=== PATIENT | male | born 1950 | race Caucasian/White ===

== ENCOUNTER 2017-04-28 17:55 | Emergency (ER) | payer MEDICARE ==
[~2017-04-28] VITALS: Ht 185.4 cm; Wt 104.3 kg
--- NOTE | ~2017-04-28 | EKG ---
PATIENT: ANANDA MOORE UNIT #: [id number] Ventricular Rate: 67 BPM Atrial Rate: 67 BPM P-R Interval: 218 ms QRS Duration: 96 ms Q-T Interval: 440 ms QTC Calculation(Bezet): 464 ms P [place]: 84 degrees Calculated R [place]: -42 degrees Calculated T [place]: 39 degrees Diagnosis Line: Sinus rhythm with 1st degree A-V block with Diagnosis Line: occasional Premature ventricular complexes Diagnosis Line: Left axis deviation Diagnosis Line: Abnormal ECG Diagnosis Line: No previous ECGs available Diagnosis Line: Confirmed by NGUYEN SANTIAGO MD ([id number]) on 04/28/2017 Diagnosis Line: 8:06:38 PM INTERPRETING MD: PAMELA FERGUSON
--- NOTE | ~2017-04-28 | US85 ---
[facility] A Service of [facility] & [facility] RADIOLOGY TEXT RESULTS PATIENT: ANANDA MOORE LOCATION: [facility] : 48 UNIT #: [id number] AGE: [address]: Alexander Lopez MD SEX: M ORDER DR: [id number] [facility] [address] [place], [place] [address] [id number] MR#: [id number] Acc #: [id number] NAME: ANANDA MOORE. : 1950 SEX: M STUDY DATE/TIME: 04/28/2017 20:02 UNIT: [facility] ROOM: STUDY DESCRIPTION: [facility] [employer] Attending Physician: Alexander Lopez M.D. Ordering Physician: Stephane Sanchez R.N. Primary Care Physician: Britta Ramirez Aprn MEDICAL IMAGING REPORT This report is preliminary unless electronic signature is present EXAM Right lower extremity venous Doppler HISTORY Pain in leg migrating to glutes, worse with exercise. Symptoms for a year, tingling right leg. History of clot 6 years ago. TECHNIQUE Venous ultrasound examination of the right lower extremity was performed using grayscale, spectral Doppler and color flow Doppler imaging. FINDINGS The examination is negative. There is no evidence of right lower extremity deep venous thrombus from the groin to the lower calf. Visualized greater saphenous vein is also patent. IMPRESSION Negative examination. No evidence of right lower extremity deep venous thrombosis. Dictated by... Celena Cerda M.D. THIS IS AN ELECTRONICALLY VERIFIED REPORT Celena Cerda M.D. at 04/29/2017 2:32 PM AGUS/agustín TD: 04/29/2017 07:22 JOB #: [id number] MEDICAL IMAGING REPORT Page 1 of 1 COPY
--- NOTE | ~2017-04-28 | US83 ---
[facility] A Service of [facility] & [facility] RADIOLOGY TEXT RESULTS PATIENT: ANANDA MOORE LOCATION: [facility] : 48 UNIT #: [id number] AGE: [address]: Alexander Lopez MD SEX: M ORDER DR: [id number] [facility] [address] [place], [place] [address] [id number] E MR#: [id number] Acc #: [id number] NAME: ANANDA MOORE. : 1950 SEX: M STUDY DATE/TIME: 04/28/2017 19:08 UNIT: [facility] ROOM: STUDY DESCRIPTION: US [facility] [employer] Attending Physician: Alexander Lopez M.D. Ordering Physician: Alexander Lopez M.D. Primary Care Physician: Britta Ramirez Aprn MEDICAL IMAGING REPORT This report is preliminary unless electronic signature is present EXAM Bilateral lower extremity arterial Doppler HISTORY 67-year-old male diabetic, hypertensive, complains of right-sided claudication, numbness and tingling. FINDINGS Noninvasive testing was performed of the lower extremities utilizing ABIs. Ankle to brachial ratios are normal bilaterally at 1.1 for the dorsalis pedis, 1.1 for the right posterior tibial, 1.3 for the left posterior tibial and 1.2 for the left dorsalis pedis. Toe to brachial pressures are also normal bilaterally at 0.67 on the right and 0.66 on the left. Triphasic flow noted within the posterior tibials bilaterally with monophasic to biphasic flow noted within the right dorsalis pedis and left dorsalis pedis. IMPRESSION Limited noninvasive testing of the lower extremities demonstrates slightly diminished ABIs on the right relative to the left, but the measurements are still within normal limits with a JAIDA of greater than 1 for the ankles bilaterally and toe to brachial pressures are also normal bilaterally, but are at the lower limits of normal at 0.67 on the right and 0.66 on the left. Dictated by... Celena Cerad M.D. THIS IS AN ELECTRONICALLY VERIFIED REPORT Celena Cerda M.D. at 04/29/2017 2:33 PM JENAS/agustín [facility]. [facility] A Service of [facility] & [facility] RADIOLOGY TEXT RESULTS PATIENT: ANANDA MOORE LOCATION: [facility] : 48 UNIT #: [id number] AGE: [address]: Alexander Lopez MD SEX: M ORDER DR: TD: 04/29/2017 07:31 JOB #: [id number] MEDICAL IMAGING REPORT Page 1 of 1 COPY
[2017-04-28 19:02] LABS: BASOPHIL# 0.1 X10e3 (0-0.3); BASOPHIL% 0.9 % (0-2.5); EOSINOPHIL# 0.2 X10e3 (0-0.7); EOSINOPHIL% 2.9 % (0.0-7.0); HEMATOCRIT 39.7 % (38.0-50.0); HEMOGLOBIN 13.4 gm/dL (13.0-16.0); LYMPHOCYTE# 1.2 X10e3 (1.0-3.5); LYMPHOCYTE% 20.2 % (17.0-45.0); MEAN CELL VOLUME 91.9 FL (83-96); MEAN CORPUSCULAR HEMOGLOBIN 31.1 PG (28-34); MEAN CORPUSCULAR HGB CONC 33.8 g/dL (30-36); MEAN PLATELET VOLUME 8.8 FL (6.5-11.5); MONOCYTE# 0.7 X10e3 (0-1.0); MONOCYTE% 11.6 % (3.0-12.0); NEUTROPHIL# 3.9 X10e3 (1.5-7.1); NEUTROPHIL% 64.4 % (40-75); PLATELET COUNT 173 X10e3 (140-420); RED BLOOD COUNT 4.32 X10e (3.90-5.60); RED CELL DISTRIBUTION WIDTH 14.2 % (11.0-15.5); WHITE BLOOD COUNT 6.1 X10e3 (4.0-10.5)
[2017-04-28 19:07] LABS: DIFF IND NO
[2017-04-28 19:18] LABS: INR 0.9; PROTHROMBIN TIME (PATIENT) 10.3 SECONDS (10.0-11.7)
[2017-04-28 19:33] LABS: ALBUMIN SERUM 4.1 g/dL (3.5-5.0); BILIRUBIN,TOTAL 0.6 mg/dL (0.2-2.0); CALCIUM SERUM 8.8 mg/dL (8.4-10.2); POTASSIUM 3.7 mmol/L (3.5-5.1); PROTEIN TOTAL SERUM 7.1 g/dL (6.0-8.3)
== END 2017-04-28 21:37 | disposition home or self-care (01) ==
LOC: CED 17:55 → CFTX 17:55 → CED 19:26
PROVIDERS: Emergency Medicine; Nurse Practitioner
DX: I73.9 Peripheral vascular disease, unspecified (principal); M54.5 Low back pain
CPT/HCPCS: 36415; 80053; 85025; 85610; 85730; 93005; 93926; 93971; 99284